=== PATIENT | male | born 1965 | race Caucasian/White ===

== ENCOUNTER 2019-05-22 14:21 | Outpatient (CLI) | payer OTHER, SELFPAY ==
--- NOTE | 2019-05-22 15:17 | MR_ITS ---
WS: [id number] MRI LEFT KNEE HISTORY: COMPLEX TEAR OF MEDIAL MENISCUS, effusion OF KNEE JOINT COMPARISON: None available. Anterior cruciate ligament: Intact. Posterior cruciate ligament: Intact. Medial collateral ligament: Intact. Posterior lateral corner structures: Intact. Medial menisci: Mild intrasubstance degeneration in the posterior horn. Increase fluid signal towards the meniscal root. Suspect tear at the meniscal root involving the superior surface. Anterior horn i s normal. Lateral meniscus: Intact. Normal signal, size and shape. Extensor mechanism: Distal quadriceps tendon and patellar tendons are intact. Fluid and soft tissue: Very small joint effusion. There is small amount of fluid in the expected loca tion of Shaver's cyst. Osseous and articular structures: Patellofemoral compartment: Focal partial defect in the lateral patellar facet. No underlying marrow signal abnormalities. Medial compartment: Mild narrowing of the medial compartment. No full-thickness signal abnormality. N o marrow edema. Lateral compartment: Mild thinning of the cartilage with no marrow signal abnormalities. MR/MR knee LT wo con* [id number] IMPRESSION: 1. Tear along the superior surface posterior horn medial meniscus towards the meniscal root. 2. Small suprapatellar joint effusion. 3. Focal chondromalacia lateral patellar facet.
== END 2019-05-22 14:22 | disposition home or self-care (01) ==
LOC: RADSHAW 14:31
PROVIDERS: Family Provider Family Medicine; PCP Family Medicine; Visit Provider Orthopaedic Surgery
DX: S83.242A Other tear of medial meniscus, current injury, left knee, initial encounter (principal); X58.XXXA Exposure to other specified factors, initial encounter; M25.462 Effusion, left knee; M22.42 Chondromalacia patellae, left knee
CPT/HCPCS: 73721

== ENCOUNTER 2023-11-13 14:50 | Outpatient (CLI) | payer OTHER, SELFPAY ==
--- NOTE | 2023-11-13 14:59 | US_ITS ---
WS: [id number] ULTRASOUND SOFT TISSUES LEFT chest. HISTORY: CHEST MASS COMPARISON: None available. TECHNIQUE: 2-D and color Doppler imaging is submitted. Palpable area along the LEFT chest wall corresponds to a well-circumscribed hypoechoic mass measuring is 1.6 x 0.9 x 1.2 cm. There is no significant amount of increased vascularity. Mass is displacing t he adjacent soft tissue structures. US/US chest [id number] IMPRESSION: 1. Subcutaneous soft tissue mass along the LEFT chest wall corresponds to the palpable abnormality. This is a very nonspecific mass but needs to be further e valuated. This could potentially be a sebaceous cyst or epidermoid cyst. If the patient has any history of cancer this could potentially be a metastatic nodul e. Could be the residual of a prior insect bite or phlegmon.
== END 2023-11-13 14:51 | disposition home or self-care (01) ==
LOC: RAD 14:52
PROVIDERS: Family Provider Family Medicine; PCP Family Medicine; Visit Provider Nurse Practitioner Family
DX: R22.2 Localized swelling, mass and lump, trunk (principal)
CPT/HCPCS: 76604

== ENCOUNTER 2024-01-15 11:17 | Outpatient (CLI) | payer OTHER, SELFPAY ==
--- NOTE | 2024-01-15 11:22 | XR_ITS ---
WS: [id number] Exam: XR shoulder RT min 2V* [id number] Date/Time of Exam: 01/15/2024 11:23 AM Reason For Exam: PAIN IN R SHOULDER No acute fracture. Mild DJD of the AC joint. Normal soft tissues. Several old right-sided rib fractur es. XR/XR shoulder RT min 2V* [id number] IMPRESSION: AC joint DJD. No other significant finding.
== END 2024-01-15 11:18 | disposition home or self-care (01) ==
LOC: RAD 11:19
PROVIDERS: Family Provider Family Medicine; PCP Internal Medicine; Visit Provider Internal Medicine
DX: M19.011 Primary osteoarthritis, right shoulder (principal)
CPT/HCPCS: 73030

== ENCOUNTER 2025-03-24 10:16 | Outpatient (CLI) | payer OTHER, SELFPAY ==
--- NOTE | 2025-03-24 10:35 | XR_ITS ---
WS: [id number] XR knee RT 4V [id number] REASON FOR EXAM: PAIN IN RIGHT KNEE FINDINGS: Possible trace joint effusion. No fracture or focal bone lesion. Minimal narrowing of the medial knee joint space with mild subchondral sclerosis and minimal osteophytosis. Moderate narrowing of the lateral joint space with mild subchondral sclerosis and moderate osteophytosis. Patellofemoral joint space is intact with mild subchondral sclerosis and osteophytosis of the patella. XR/XR knee RT 4V [id number] IMPRESSION: Moderate to significant osteoarthritis of the right knee.
== END 2025-03-24 10:17 | disposition home or self-care (01) ==
PROVIDERS: Family Provider Family Medicine; PCP Internal Medicine; Visit Provider Internal Medicine
DX: M25.561 Pain in right knee (principal); M17.11 Unilateral primary osteoarthritis, right knee
CPT/HCPCS: 73564